=== PATIENT | female | born 1980 | race Caucasian/White ===

== ENCOUNTER 2016-07-24 07:26 | Emergency (ER) | payer MEDICAID, OTHER ==
[~2016-07-24] VITALS: Wt 44.0 kg
[~2016-07-24 07:26] MED LIST: DICY10CA60 PO; IBUP-1542 PO; ONDA4TAB35 PO
[2016-07-24] MEDS ORDERED: LIDOCAINE/MYLANTA 40 ML BTL PO STA (08:09)
[2016-07-24] MEDS ORDERED: FAMOTIDINE 20 MG TAB PO ONE (08:30)
--- NOTE | 2016-07-24 08:52 | RADRPT ---
PROCEDURE: Chest radiograph series. CLINICAL INDICATION: Shortness of breath TECHNIQUE: PA and lateral chest x-ray. COMPARISON: None available FINDINGS: The cardiomediastinal silhouette is unremarkable. The lungs and costophrenic angles are clear. The o sseous structures are unremarkable. IMPRESSION: 1. Unremarkable chest radiograph series. RPTAT: KK .Brigido Vela MD, Date Time Electronically viewed and signed by .Brigido Vela MD, MD on 07/24/2016 08:52 .B/
--- NOTE | 2016-07-24 09:05 | ERD ---
ER Documentation Chief Complaint Date/Time DATE: 07/24/16 TIME: 09:03 Chief Complaint difficulty breathing since last night after eating. lungs clear sore throat HPI The patient is a 35-year-old female here with substernal pain that she describes as pressure/fullness and burning that radiates up into her throat, shortness of breath, and sore throat since last night. She reported taking Tums with no relief. No other home treatments. She denies any other symptoms or concerns at this time including, but not limited to palpitations, dizziness, lightheadedness, changes in mentation, fever, chills, nausea, vomiting, diarrhea , headache, dysuria, calf pain, calf redness, calf swelling, or abdominal pain. The patient denied taking control pills. ROS All systems reviewed and are negative except as per history of present illness. Medications Home Meds Active Scripts Tramadol HCl (Tramadol HCl) 50 Mg Tablet, 50 MG PO Q6 Y for PAIN, #6 TAB Prov:CALLIE ANGULO, NURSING ATTENDANT 07/24/16 Famotidine* (Pepcid*) 20 Mg Tablet, 20 MG PO BID for 4 Days, TAB Prov:CALLIE ANGULO, NURSING ATTENDANT 07/24/16 Ondansetron Hcl* (Zofran* ODT) 4 mg -ODT Tab.disper, 4 MG PO Q8 Y for NAUSEA AND /OR VOMITING, #30 TAB Prov:NAN RAJAN NURSING ATTENDANT 01/19/16 Ibuprofen* (Motrin*) 600 Mg Tab, 600 MG PO Q6H Y for PAIN AND OR ELEVATED TEMP, #30 TAB Prov:NAN RAJAN NURSING ATTENDANT 01/19/16 Dicyclomine Hcl* (Bentyl*) 10 Mg Capsule, 20 MG PO QID, #20 CAP Prov:NAN RAJAN NURSING ATTENDANT 01/19/16 Reported Medications [none] Unknown Strength No Conflict Check 01/19/16 Allergies Allergies: Coded Allergies: No Known Allergy (Unverified , 01/19/16) PMhx/Soc Medical and Surgical Hx: pt denies Medical Hx, pt denies Surgical Hx Hx Alcohol Use: No Hx Substance Use: No Hx Tobacco Use: No Physical Exam Vitals Vital Signs Date Time Temp Pulse Resp B/P Pulse Ox O2 Delivery O2 Flow Rate FiO2 07/24/16 10:00 98.8 66 18 122/78 98 Room Air 07/24/16 07:30 98.8 88 20 127/88 98 Physical Exam INITIAL VITAL SIGNS: Reviewed by me, afebrile, no tachycardia, no tachypnea, oximetry 98% on room air, blood pressure 127/88 GENERAL: Alert. Well developed and well nourished. No acute distress. Nontoxic -appearing. HEAD: Head is normocephalic. Atraumatic. EYES: EOMI. PERRL. No scleral icterus. No conjunctival injection. ENT: External ears, nose, and mouth normal. Nasal passages patent. Moist mucous membranes. NECK: Supple. Full range of motion. Trachea midline. RESPIRATORY: No tachypnea. Clear to auscultation bilaterally. No wheezing, rales , or rhonchi. No evidence of respiratory distress. CV: Regular rate and rhythm. No murmurs, rubs, or gallops. ABDOMEN: Soft, non-distended, non-tender. No guarding. Bowel sounds normal in all quadrants. BACK: No CVA tenderness. Full ROM. EXTREMITIES: No obvious deformity. No clubbing or cyanosis. No edema. SKIN: Warm and dry. No diaphoresis. No obvious rashes or lesions. NEUROLOGIC: Alert and oriented x 3. Appropriate. Face is symmetric. Speech is normal. Moves all extremities equally. Results 24 hrs Current Medications Medications (Trade) Dose Ordered Sig/[place] Route PRN Reason Start Time Stop Time Status Last Admin Dose Admin Famotidine (Pepcid) 20 mg ONCE ONCE PO 07/24/16 08:30 07/24/16 08:31 DC 07/24/16 08:15 Miscellaneous Medication (Gi Cocktail (2)) 40 ml ONCE STAT PO 07/24/16 08:09 07/24/16 08:12 DC 07/24/16 08:15 Tramadol HCl (Ultram) 50 mg ONCE ONCE PO 07/24/16 10:00 07/24/16 10:01 DC 07/24/16 09:44 Procedures/[address] [address] Radiology Main Line: [phone] DIAGNOSTIC IMAGING REPORT Patient: ELLIE BOWERS : 1980 Age: 35 Sex: F MR #: [id number] [facility] #: [id number] DOS: 07/24/16 0809 Ordering MD: CALLIE ANGULO NP Location: [facility] Room/Bed: PROCEDURE: Chest radiograph series. CLINICAL INDICATION: Shortness of breath TECHNIQUE: PA and lateral chest x-ray. COMPARISON: None available FINDINGS: The cardiomediastinal silhouette is unremarkable. The lungs and costophrenic angles are clear. The osseous structures are unremarkable. IMPRESSION: 1. Unremarkable chest radiograph series. RPTAT: KK .Brigido Vela MD, MD Date Time Electronically viewed and signed by .Brigido Vela MD, MD on 2016 08:52 .B/ CC: CALLIE ANGULO NP Nursing Notes Reviewed Previous Medical Records requested via [employer]. EMERGENCY DEPARTMENT COURSE / MEDICAL DECISION MAKING: The patient comes to the ED secondary to substernal pain and burning, shortness of breath, and sore throat since last night at approximately 3 AM. Differential diagnosis upon initial evaluation includes but is not limited to: ACS, aortic dissection, PE, pneumonia, sepsis, GERD, and others. The case was discussed with supervising physician Dr. Givens. A chest x-ray and EKG were ordered. The patient was treated with Pepcid 20 mg p.o., Zofran 4 mg p.o. GI cocktail, tramadol 50 mg p.o.. After treatment, the patient's symptoms resolved. Chest x-ray per radiology report: IMPRESSION: 1. Unremarkable chest radiograph series. 12-lead EKG Interpretation by Attending Physician Dr. Givens and reviewed by Jean Angulo NURSING ATTENDANT-C: Normal Sinus Rhythm with ventricular rate of 90 beats per minute Normal axis Normal intervals No ectopic beats No signs of acute changes Overall impression is normal EKG Patient's clinical course, response to treatment, chest x-ray findings, and EKG findings were discussed with Dr. Givens. Given these, and that the patient's PERC criteria were negative, there is low suspicion for ACS, PE, aortic dissection, pneumonia, sepsis, or any other serious cause of substernal pain at this time. As such, the patient is an appropriate candidate for outpatient management and follow-up at this time. Final impression: GERD Based on patient's history of present illness and physical examination the decision was made to discharge. The patient was re-evaluated after ED treatment and stabilizing measures, and symptoms have improved. There is no evidence of life threatening injuries or illnesses at this time. On re-examination, patient resting in no distress, stable vital signs, reports feeling better and safe for discharge with outpatient follow up with PMD in 1-2 days. Patient given return precautions. The patient verbalized understanding and agreed to return precautions and will return here immediately, or to the nearest emergency room, for worsening symptoms, changing symptoms, new symptoms , or concerns. All of her questions and concerns were addressed prior to discharge. She agrees with the plan of care and will follow-up as directed. Prescriptions Pepcid Tramadol Departure Diagnosis: Primary Impression: GERD (gastroesophageal reflux disease) Esophagitis presence: without esophagitis Qualified Code: K21.9 - Gastroesophageal reflux disease without esophagitis CALLIE ANGULO NP Jul 24, 2016 09:05
[2016-07-24] MEDS ORDERED: TRAM50TA2 PO (09:52)
[2016-07-24] MEDS ORDERED: FAMO-18 PO (09:52)
[2016-07-24 10:00] VITALS: BP 122/78; PULSE 66; RESP 18; TEMP 98.8
[2016-07-24] MEDS ORDERED: traMADol 50 MG TAB PO ONE (10:00)
== END 2016-07-24 10:00 | disposition home or self-care (01) ==
LOC: FTE 07:26
DX: K21.9 Gastro-esophageal reflux disease without esophagitis (principal)
CPT/HCPCS: 71020; Z7502; Z7610